=== PATIENT | male | born 1955 | race African-American/Black ===

== ENCOUNTER 2016-08-01 12:04 | Emergency (ER) | payer SELFPAY ==
[~2016-08-01] VITALS: Ht 165.1 cm; Wt 70.0 kg
[2016-08-01] MEDS ORDERED: IBUPROFEN 600MG TABLET PO ONE (14:00)
[2016-08-01 14:15] VITALS: BP 115/77
== END 2016-08-01 14:23 | disposition home or self-care (01) ==
LOC: ER 12:05
DX: G89.29 Other chronic pain (principal); H92.03 Otalgia, bilateral; F99 Mental disorder, not otherwise specified
CPT/HCPCS: 99283

== ENCOUNTER 2016-08-20 04:29 | Emergency (ER) | payer SELFPAY ==
[~2016-08-20] VITALS: Ht 167.6 cm; Wt 61.0 kg
[2016-08-20 07:45] VITALS: BP 121/58
== END 2016-08-20 11:59 | disposition home or self-care (01) ==
LOC: ER 04:29
DX: H93.13 Tinnitus, bilateral (principal)
CPT/HCPCS: 99283

== ENCOUNTER 2016-09-17 05:52 | Emergency (ER) | payer SELFPAY ==
[~2016-09-17] VITALS: Ht 170.2 cm; Wt 75.0 kg
[2016-09-17 06:13] VITALS: BP 112/83
[2016-09-17] MEDS ORDERED: CEFTRIAXONE SODIUM 1 G/VIAL IM ONE (08:00)
[2016-09-17] MEDS ORDERED: LIDOCAINE HCL 1% 20ML VIAL (Pyxis) INJ INFIL ONE (08:00)
== END 2016-09-17 08:39 | disposition home or self-care (01) ==
LOC: ER 05:56
DX: H60.92 Unspecified otitis externa, left ear (principal); H66.92 Otitis media, unspecified, left ear
CPT/HCPCS: 99283

== ENCOUNTER 2016-10-14 20:13 | Emergency (ER) | payer SELFPAY ==
[~2016-10-14] VITALS: Ht 177.8 cm; Wt 54.0 kg
[2016-10-15 00:30] VITALS: BP 128/77
== END 2016-10-15 01:06 | disposition home or self-care (01) ==
LOC: ER 20:13
DX: H92.03 Otalgia, bilateral (principal)
CPT/HCPCS: 99283

== ENCOUNTER 2016-10-20 05:37 | Emergency (ER) | payer SELFPAY ==
[~2016-10-20] VITALS: Ht 172.7 cm; Wt 64.0 kg
[2016-10-20] MEDS ORDERED: IBUPROFEN 600MG TABLET PO ONE (06:45)
[2016-10-20 07:21] VITALS: BP 117/84
== END 2016-10-20 10:48 | disposition home or self-care (01) ==
LOC: ER 05:37
DX: H60.93 Unspecified otitis externa, bilateral (principal); H66.93 Otitis media, unspecified, bilateral; F17.200 Nicotine dependence, unspecified, uncomplicated
CPT/HCPCS: 99283

== ENCOUNTER 2017-06-07 22:33 | Emergency (ER) | payer MEDICAID ==
[~2017-06-07] VITALS: Ht 175.3 cm; Wt 63.0 kg
[2017-06-07] MEDS ORDERED: SODIUM CHLORIDE 0.9% 1,000 ML IV ONE (22:58)
[2017-06-07] MEDS ORDERED: MIDAZOLAM HCL 2 MG/2 ML VIAL IV ONE (23:15)
[2017-06-07 23:38] LABS: PROTHROMBIN TIME 10.9 sec (9.4-11.6)
[2017-06-07 23:39] LABS: BASOPHILS % 0.6 % (0.0-2.0); EOSINOPHILS % 3.2 % (0.0-5.0); HEMATOCRIT. 39.4 % (42.0-52.0); LYMPHOCYTES % 38.5 % (20.0-50.0); MEAN CORPUSCULAR HEMOGLOBIN 27.8 pg (28.0-32.0); MEAN CORPUSCULAR VOLUME 84.1 fL (80.0-94.0); MEAN PLATELET VOLUME 8.2 fl (7.4-10.4); MONOCYTES % 7.5 % (2.0-8.0); NEUTROPHILS % 50.2 % (40.0-76.0); PLATELET 238 x1000/uL (130-400); RED BLOOD CELL COUNT 4.68 mill/uL (4.7-6.1); RED CELL DISTRIBUTION WIDTH 14.4 % (11.6-14.6)
[2017-06-07 23:56] LABS: CHLORIDE 100 mEq/L (98-107)
[2017-06-08 00:02] LABS: AMMONIA 23 uMol/L (<32)
[2017-06-08 00:04] LABS: ETHANOL BLOOD < 10 mg/dL
[2017-06-08 00:08] LABS: CREATINE KINASE 505 IU/L (39-308)
[2017-06-08] MEDS ORDERED: SODIUM CHLORIDE 0.9% 1000ML BAG (SEPSIS BOLUS) IV ONE (01:00)
[2017-06-08] MEDS ORDERED: SODIUM CHLORIDE 0.9% 1,000 ML IV ONE (02:39)
[2017-06-08] MEDS ORDERED: MIDAZOLAM HCL 2 MG/2 ML VIAL IV ONE (02:45)
[2017-06-08 04:34] LABS: CLARITY URINE CLEAR (CLEAR); COLOR URINE YELLOW (YELLOW); KETONES URINE NEGATIVE (NEGATIVE); LEUKOCYTE ESTERASE URINE NEGATIVE (NEGATIVE); NITRITE URINE NEGATIVE (NEGATIVE); OCCULT BLOOD URINE NEGATIVE (NEGATIVE); PROTEIN URINE NEGATIVE (NEGATIVE); SPECIFIC GRAVITY URINE 1.025 (1.005-1.030); UROBILINOGEN URINE 0.2 E.U./dL (0.2-1.0)
[2017-06-08 04:44] LABS: *AMPHETAMINES SCREEN URINE NEGATIVE (NEGATIVE); *BARBITURATES SCREEN URINE NEGATIVE (NEGATIVE); *BENZODIAZEPINES SCREEN URINE PRESUMTIVE POSITIVE (NEGATIVE); *COCAINE SCREEN URINE PRESUMTIVE POSITIVE (NEGATIVE)
[2017-06-08 04:45] LABS: CANNABINOID URINE SCREEN NEGATIVE (NEGATIVE); METHADONE URINE SCREEN NEGATIVE (NEGATIVE); OPIATES URINE SCREEN PRESUMTIVE POSITIVE (NEGATIVE); PHENCYCLIDINE URINE SCREEN NEGATIVE (NEGATIVE)
[2017-06-08 06:27] VITALS: BP 100/66
== END 2017-06-08 06:08 | disposition home or self-care (01) ==
LOC: ER 22:51
DX: R41.0 Disorientation, unspecified (principal); F11.10 Opioid abuse, uncomplicated; F14.10 Cocaine abuse, uncomplicated; Z91.19 Patient's noncompliance with other medical treatment and regimen
CPT/HCPCS: 36415; 70450; 70486; 71045; 80053; 80305; 80307; 80329; 81003; 82140; 82550; 83605; 83690; 83880; 84443; 84484; 85025; 85610; 93005; 96361; 96374; 99285; G0482; J2250; J7030

== ENCOUNTER 2017-06-14 08:21 | Emergency (ER) | payer MEDICAID ==
[~2017-06-14] VITALS: Ht 177.8 cm; Wt 78.0 kg
[2017-06-14] MEDS ORDERED: IBUPROFEN 400MG TABLET PO ONE (09:30)
[2017-06-14 10:11] VITALS: BP 122/76
== END 2017-06-14 10:19 | disposition home or self-care (01) ==
LOC: ER 08:30
DX: H92.03 Otalgia, bilateral (principal); L29.9 Pruritus, unspecified
CPT/HCPCS: 99283

== ENCOUNTER 2017-07-02 04:40 | Emergency (ER) | payer MEDICAID ==
[~2017-07-02] VITALS: Ht 167.6 cm; Wt 65.0 kg
[2017-07-02 04:54] VITALS: BP 11/75
== END 2017-07-02 08:07 | disposition left against medical advice (07) ==
LOC: ER 04:40
DX: Z53.21 Procedure and treatment not carried out due to patient leaving prior to being seen by health care provider (principal)

== ENCOUNTER 2017-07-04 05:09 | Emergency (ER) | payer MEDICAID ==
[~2017-07-04] VITALS: Ht 175.3 cm; Wt 69.0 kg
[2017-07-04 05:14] VITALS: BP 131/93
== END 2017-07-04 08:10 | disposition home or self-care (01) ==
LOC: ER 05:24
DX: S40.862A Insect bite (nonvenomous) of left upper arm, initial encounter (principal); S40.861A Insect bite (nonvenomous) of right upper arm, initial encounter; S80.862A Insect bite (nonvenomous), left lower leg, initial encounter; S80.861A Insect bite (nonvenomous), right lower leg, initial encounter; H91.93 Unspecified hearing loss, bilateral; F17.200 Nicotine dependence, unspecified, uncomplicated; W57.XXXA Bitten or stung by nonvenomous insect and other nonvenomous arthropods, initial encounter; Y93.89 Activity, other specified; Y92.89 Other specified places as the place of occurrence of the external cause; Y99.8 Other external cause status
CPT/HCPCS: 99283